=== PATIENT | female | born 1940 | race Caucasian/White ===

== ENCOUNTER 2018-04-22 15:33 | Emergency (ER) | payer OTHER, MEDICARE ==
[2018-04-22] MEDS ORDERED: NS 1,000 ML IV ONE (15:37)
--- NOTE | 2018-04-22 15:40 | EDPHY ---
H & P Time Seen by Provider: 04/22/18 15:40 HPI/ROS: CHIEF COMPLAINT: Syncope HISTORY OF PRESENT ILLNESS: The patient is a 78-year-old female from [facility] who was on a field trip with her group when she was riding the elevator and had a syncopal event. She fell forward into the elevator door and then to the ground. She awoke after a few seconds. She denies having any pain or injury but has a history of Alzheimer's and is minimally verbal. She does not have any obvious signs of injury. She is oriented to person only. It sounds as though this is her baseline according to paramedics. REVIEW OF SYSTEMS: Unable to obtain secondary to condition EXAM: GENERAL: Well-appearing, well-nourished and in no acute distress. HEAD: Atraumatic, normocephalic. EYES: Pupils equal round and reactive to light, extraocular movements intact, sclera anicteric, conjunctiva are normal. ENT: TMs normal, nares patent, oropharynx clear without exudates. Moist mucous membranes. NECK: Normal range of motion, supple without lymphadenopathy or JVD. LUNGS: Breath sounds clear to auscultation bilaterally and equal. No wheezes rales or rhonchi. HEART: Regular rate and rhythm without murmurs, rubs or gallops. ABDOMEN: Soft, nontender, normoactive bowel sounds. No guarding, no rebound. No masses appreciated. BACK: No CVA tenderness, no spinal tenderness, step-offs or deformities EXTREMITIES: Normal range of motion, no pitting or edema. No clubbing or cyanosis. NEUROLOGICAL: Cranial nerves II through XII grossly intact. Normal speech, normal gait. 5/5 strength, normal movement in all extremities, normal sensation PSYCH: Normal mood, normal affect. SKIN: Warm, dry, normal turgor, no visible rashes or lesions. Source: Patient, EMS Exam Limitations: No limitations - Medical/Surgical History Hx Asthma: No Hx Chronic Respiratory Disease: No Hx Diabetes: No Hx Cardiac Disease: No Hx Renal Disease: No Hx Cirrhosis: No Hx Alcoholism: No - Family History Significant Family History: No pertinent family hx - Social History Smoking Status: Never smoked Alcohol Use: Sober Constitutional: Initial Vital Signs Temperature (C) 36.6 C 04/22/18 15:38 Heart Rate 77 04/22/18 15:38 Respiratory Rate 18 04/22/18 15:38 Blood Pressure 133/93 H 04/22/18 15:38 O2 Sat (%) 95 04/22/18 15:38 O2 Delivery Mode Room Air Allergies/Adverse Reactions: No Known Allergies Allergy (Unverified 04/22/18 15:40) Medical Decision Making - Diagnostics Imaging Results: Imaging Impressions Cervical Spine CT 04/22/18 15:38 Impression: 1. 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 2. Negative for posttraumatic hemorrhage. 3. See above report for additional findings. CT Cervical Spine, Without Contrast History: Trauma. Technique: Multislice helical CT through the cervical spine, without contrast, from the skull base to T1. Soft tissue and bone evaluation is performed. Sagittal and coronal reconstructions are obtained and reviewed. Dose reduction techniques were utilized. Findings: Cervical alignment is anatomic. No fracture or dislocation is identified. The relationship between skull base and C1 is normal. The C1-C2 articulation is normal. The odontoid process is normal. The cervical thoracic junction is normal. Soft tissue window evaluation does not show evidence of epidural or prevertebral hematoma. Multilevel degenerative changes are noted, with disk space loss and bony hypertrophic changes extending from C3-C4 to the C7-T1 level, with findings most pronounced at C5-C6 and at C6-C7. Impression: 1. Negative for fracture. 2. Multilevel degenerative changes are noted. Results called and discussed with Claudy Yancey M.D., on April 22, [address] 04/22/18 15:38 Impression: 1. 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 2. Negative for posttraumatic hemorrhage. 3. See above report for additional findings. CT Cervical Spine, Without Contrast History: Trauma. Technique: Multislice helical CT through the cervical spine, without contrast, from the skull base to T1. Soft tissue and bone evaluation is performed. Sagittal and coronal reconstructions are obtained and reviewed. Dose reduction techniques were utilized. Findings: Cervical alignment is anatomic. No fracture or dislocation is identified. The relationship between skull base and C1 is normal. The C1-C2 articulation is normal. The odontoid process is normal. The cervical thoracic junction is normal. Soft tissue window evaluation does not show evidence of epidural or prevertebral hematoma. Multilevel degenerative changes are noted, with disk space loss and bony hypertrophic changes extending from C3-C4 to the C7-T1 level, with findings most pronounced at C5-C6 and at C6-C7. Impression: 1. Negative for fracture. 2. Multilevel degenerative changes are noted. Results called and discussed with Claudy Yancey M.D., on April 22, 2018 at 1620. Imaging: Discussed imaging studies w/ machine scallop cutter Radiologist ED Course/Re-evaluation: 4:30 p.m. we are with contact custodial and family. They state that the patient is at her baseline. Daughter is on her way to pick her up. 4:50 p.m. the patient family is here and states that she is at her baseline. She is eager to take home. We discussed indications for returning. Differential Diagnosis: Partial list of the Differential diagnosis considered include but were not limited to; fall, head injury, syncope, arrhythmia and although unlikely based on the history and physical exam, I also considered neck injury, electrolyte abnormality, infection. - Data Points Laboratory Results: Laboratory Results 04/22/18 15:53 04/22/18 15:53 04/22/18 04/22/18 04/22/18 15:53 15:53 15:53 WBC 9.13 10^3/uL 10^3/uL (3.80-9.50) RBC 5.03 10^6/uL 10^6/uL (4.18-5.33) Hgb 15.1 g/dL g/dL (12.6-16.3) Hct 46.3 % % (38.0-47.0) MCV 92.0 fL fL (81.5-99.8) MCH 30.0 pg pg (27.9-34.1) MCHC 32.6 g/dL g/dL (32.4-36.7) RDW 13.4 % % (11.5-15.2) Plt Count 346 10^3/uL 10^3/uL (150-400) MPV 10.1 fL fL (8.7-11.7) Neut % (Auto) 42.9 % % (39.3-74.2) Lymph % (Auto) 48.5 % H % (15.0-45.0) [place] % (Auto) 5.7 % % (4.5-13.0) Eos % (Auto) 2.3 % % (0.6-7.6) Baso % (Auto) 0.4 % % (0.3-1.7) Nucleat RBC Rel Count 0.0 % % (0.0-0.2) Absolute Neuts (auto) 3.91 10^3/uL 10^3/uL (1.70-6.50) Absolute Lymphs (auto) 4.43 10^3/uL H 10^3/uL (1.00-3.00) Absolute Monos (auto) 0.52 10^3/uL 10^3/uL (0.30-0.80) Absolute Eos (auto) 0.21 10^3/uL 10^3/uL (0.03-0.40) Absolute Basos (auto) 0.04 10^3/uL 10^3/uL (0.02-0.10) Absolute Nucleated RBC 0.00 10^3/uL 10^3/uL (0-0.01) Immature Gran % 0.2 % % (0.0-1.1) Immature Gran # 0.02 10^3/uL 10^3/uL (0.00-0.10) PT 12.8 SEC SEC (12.0-15.0) INR 0.94 (0.83-1.16) APTT 29.4 SEC SEC (23.0-38.0) Sodium 145 mEq/L mEq/L (135-145) Potassium 3.8 mEq/L mEq/L (3.3-5.0) Chloride 107 mEq/L mEq/L (97-110) Carbon Dioxide 24 mEq/l mEq/l (22-31) Anion Gap 14 mEq/L mEq/L (8-16) BUN 30 mg/dL H mg/dL (7-23) Creatinine 0.9 mg/dL mg/dL (0.6-1.0) Estimated GFR > 60 Glucose 107 mg/dL H mg/dL (70-100) Calcium 9.8 mg/dL mg/dL (8.5-10.4) Troponin I < 0.012 ng/mL ng/mL (0.000-0.034) Medications Given: Discontinued Medications Sodium Chloride (Ns) 1,000 mls @ 0 mls/hr IV ONCE ONE; Wide Open PRN Reason: Protocol Stop: 04/22/18 15:38 Last Admin: 04/22/18 15:55 Dose: 1,000 mls Departure - Departure Disposition: Home, Routine, Self-Care Clinical Impression: Syncope and collapse Condition: Fair Instructions: Syncope (ED) Referrals: Patient,NotPresent [Unknown] - As per Instructions
--- NOTE | 2018-04-22 15:57 | CPEKG ---
Heart Rate: 72 RR Interval: 833 P-R Interval: 172 QRSD Interval: 82 QT Interval: 424 QTC Interval: 465 P [place]: 69 QRS [place]: 14 T Wave [place]: 40 EKG Severity - NORMAL ECG - EKG Impression: SINUS RHYTHM Electronically Signed By: Claudy Yancey 22-Apr-2018 15:57:53
[2018-04-22 15:59] LABS: PLATELET COUNT 346 10^3/uL (150-400)
[2018-04-22 16:12] LABS: INR 0.94 (0.83-1.16); PROTIME(PATIENT) 12.8 SEC (12.0-15.0)
[2018-04-22 17:08] VITALS: BP 149/90
--- NOTE | 2018-04-22 18:52 | ASMTCMCOM ---
CM Note CM Note Notes: Pt presented to the ED via EMS after having a syncopal episode and the hitting her head [place]. Pt lives at [facility] on their Memory Care Unit and has advanced dementia/alzheimers. Spoke w/Linda at [facility] ([phone]) and she says pt's baseline cognitive status is AxOxO and is also enrolled in [facility]. Spoke with pt's daughter, Marianna ([phone]) and she says she will come to the ED and be able to transport patient back to [facility]. Pt is physically very mobile and able to ambulate well. Report given to Linda at [facility]. CM available for further assistance if needed. Date Signed: 04/22/2018 06:52 PM Electronically Signed By:Brooklynn Proctor RN
--- NOTE | 2018-04-22 18:54 | ASDISCHSUM ---
Discharge Information Plan Status:Assisted Living Medically Cleared to Leave: Discharge Date:04/22/2018 05:07 PM D/C Disposition:Assisted Living ADT D/C Disposition:Home, Routine, Self-Care Projected Discharge Date:04/22/2018 05:07 PM Transportation at D/C:Family Discharge Delay Reason: Follow-Up Date:04/22/2018 05:07 PM Discharge Slot: Final Diagnosis: Placement Information Patient Contact Information Contact Name:TAMMIE Relationship:Daughter Address: Work Phone: City: [facility] Phone: State/Zip Code: Email: Financial Information Financial Class:Medicare Primary Plan Desc:MEDICARE OUTPATIENT Primary Plan Number:[id number] Secondary Plan Desc:[employer]/MDR SUPPLEMENT Secondary Plan Number:[id number] Assessment Information [facility] Progress Note CM Note CM Note Notes: Pt presented to the ED via EMS after having a syncopal episode and the hitting her head while she was on an outing at the [employer]. Pt lives at [facility] on their Memory Care Unit and has advanced dementia/alzheimers. Spoke w/Linda at [facility] ([phone]) and she says pt's baseline cognitive status is AxOxO and is also enrolled in [facility]. Spoke with pt's daughter, Marianna ([phone]) and she says she will come to the ED and be able to transport patient back to [facility]. Pt is physically very mobile and able to ambulate well. Report given to Linda at [facility]. CM available for further assistance if needed. Date Signed: 04/22/2018 06:52 PM Electronically Signed By:Brooklynn Proctor RN Intervention Information Intervention Type:Post Acute Communication Date of Service:04/22/2018 06:52 PM Patient Type:Emergency Room Staff Member:MARYBETH Proctor [place] Hours:0.5 Discipline:Hydroponics Worker Severity: Comment:communication and report provided to Lissa GALVEZ Intervention Type:Locating Emergency Contact Date of Service:04/22/2018 06:52 PM Patient Type:Emergency Room Staff Member:MARYBETH Proctor [place] Hours:0.25 Discipline:Hydroponics Worker Severity: Comment:jaime Cabral
== END 2018-04-22 17:07 | disposition home or self-care (01) ==
LOC: EDUNIT#
DX: R55 Syncope and collapse (principal); E86.9 Volume depletion, unspecified
CPT/HCPCS: G0390